=== PATIENT | female | born 1980 ===

== ENCOUNTER 2024-03-09 14:55 | Emergency (ER) | payer SELFPAY ==
[~2024-03-09] VITALS: Ht 165.1 cm; Wt 56.0 kg
[2024-03-09 15:08] VITALS: BP 131/79; PULSE 90; RESP 16; TEMP 99.3; O2SAT 99
[2024-03-09 15:43] LABS: BILIRUBIN,URINE NEGATIVE (Neg); CLARITY,URINE CLOUDY (Clear); COLOR,URINE YELLOW (Yellow); GLUCOSE, URINE NEGATIVE (Neg); KETONES,URINE NEGATIVE (Neg); LEUKOCYTE ESTERASE ,URINE TRACE (Neg); NITRITES, URINE NEGATIVE (Neg); OCCULT BLOOD,URINE NEGATIVE (Neg); PROTEIN,URINE NEGATIVE (Neg); UROBILINOGEN,URINE 0.2 E.U/dL (0.2-1.0)
[2024-03-09 15:46] LABS: UA COLLECTION TYPE CLN CATCH MIDSTREAM
[2024-03-09 15:50] LABS: SQUAMOUS EPITHELIAL CELL,UR MODERATE /LPF (FEW)
[2024-03-09 15:51] LABS: AMORPHOUS PHOSPHATES 2+
[2024-03-09 15:52] LABS: URINE AMPHETAMINE SCREEN NEGATIVE (Neg); URINE BARBITUATE SCREEN NEGATIVE (Neg); URINE BENZODIAZEPINES SCREEN NEGATIVE (Neg); URINE CANNABINOID SCREEN NEGATIVE (Neg); URINE COCAINE SCREEN NEGATIVE (Neg); URINE METHADONE SCREEN NEGATIVE (Neg); URINE OPIATE SCREEN NEGATIVE (Neg); URINE PHENCYCLIDINE SCREEN NEGATIVE (Neg)
[2024-03-09 15:58] LABS: BACTERIA,URINE 1+ /HPF (Neg); RBC,URINE NONE SEEN /HPF (0-2); WBC,URINE 0-4 /HPF (0-4)
== END 2024-03-09 17:40 | disposition left against medical advice (07) ==
LOC: ER 14:56
DX: Z04.6 Encounter for general psychiatric examination, requested by authority (principal); Z53.21 Procedure and treatment not carried out due to patient leaving prior to being seen by health care provider
CPT/HCPCS: 80305; 81001

== ENCOUNTER 2024-03-14 10:40 | Emergency (ER) | payer MEDICAID ==
[~2024-03-14] VITALS: Ht 166.4 cm; Wt 54.2 kg
[2024-03-14 10:43] VITALS: BP 153/93; PULSE 95; RESP 16; TEMP 98.7; O2SAT 100
== END 2024-03-14 11:48 | disposition left against medical advice (07) ==
LOC: ER 10:41
DX: G47.00 Insomnia, unspecified (principal); R11.10 Vomiting, unspecified; Z53.21 Procedure and treatment not carried out due to patient leaving prior to being seen by health care provider